=== PATIENT | female | born 1960 | race Caucasian/White ===

== ENCOUNTER 2016-11-22 16:07 | Emergency (ER) | payer MEDICAID ==
[2016-11-22 17:06] LABS: APPEARANCE CLEAR (CLEAR); BILIRUBIN NEGATIVE (NEGATIVE); COLOR YELLOW (YELLOW); GLUCOSE NEGATIVE (NEGATIVE); KETONE NEGATIVE (NEGATIVE); LEUKOCYTE ESTERASE NEGATIVE (NEGATIVE); NITRITE NEGATIVE (NEGATIVE); PROTEIN NEGATIVE (NEGATIVE); SPECIFIC GRAVITY 1.015 (1.005-1.020); UROBILINOGEN NORMAL (NORMAL)
[2016-11-22 17:21] LABS: UDS - AMPHET NEGATIVE QUAL (NEGATIVE); UDS - BARB NEGATIVE QUAL (NEGATIVE); UDS - BENZO POSITIVE QUAL (NEGATIVE); UDS - COCAINE NEGATIVE QUAL (NEGATIVE); UDS - METH NEGATIVE QUAL (NEGATIVE); UDS - OPIATE NEGATIVE QUAL (NEGATIVE); UDS - PCP NEGATIVE QUAL (NEGATIVE); UDS - THC NEGATIVE QUAL (NEGATIVE)
[2016-11-22 17:25] LABS: BASOPHILS 0.5 % (0-2); EOSINOPHILS 0.5 % (0-7); HEMATOCRIT 40.2 % (36.0-48.0); HEMOGLOBIN 13.3 g/dL (12-16); IMMATURE GRANULOCYTES 0.4 % (0-5); LYMPHOCYTES 20.2 % (15-50); MCH 34.3 pg (26.0-34.0); MCHC 33.1 g/dL (31.0-37.0); MCV 103.6 fL (80.0-100.0); MEAN PLATELET VOLUME 9.6 fL (7.4-10.4); MONOCYTES 11.6 % (2-11); NEUTROPHILS 66.8 % (40-80); PLATELET COUNT 287 10x3/uL (130-400); RBC 3.88 10x6/uL (4.00-5.40); RDW 13.1 % (11.5-14.5); WBC 7.6 10x3/uL (4.8-10.8)
[2016-11-22 17:43] LABS: ALBUMIN 3.7 g/dL (3.4-5.0); ALKALINE PHOSPHATASE 85 U/L (46-116); ALT (SGPT) 36 U/L (10-68); AMYLASE - SERUM 36 U/L (25-115); BILIRUBIN - TOTAL 0.33 mg/dL (0.2-1.3); CALC OSMOLALITY 276 mosm/kg (275-300); CALCIUM 8.9 mg/dL (8.5-10.1); CARBON DIOXIDE 28.6 mmol/L (21.0-32.0); CHLORIDE - SERUM 103 mmol/L (98-107); CREATININE - SERUM 0.7 mg/dL (0.6-1.3); GLUCOSE 99 mg/dL (74-106); LIPASE 199 U/L (73-393); POTASSIUM - SERUM 3.9 mmol/L (3.5-5.1); SODIUM 139 mmol/L (136-145); UREA NITROGEN 11 mg/dL (7-18); eGFR NON AFRICAN AMERICAN > 90 mL/min (90-120)
== END 2016-11-22 20:00 | disposition home or self-care (01) ==
LOC: D.ER 16:07
PROVIDERS: Emergency Medicine
DX: K59.00 Constipation, unspecified (principal); R10.9 Unspecified abdominal pain

== ENCOUNTER 2016-12-31 19:15 | Emergency (ER) | payer MEDICAID ==
[2016-12-31 20:37] LABS: APPEARANCE HAZY (CLEAR); BILIRUBIN NEGATIVE (NEGATIVE); COLOR YELLOW (YELLOW); GLUCOSE NEGATIVE (NEGATIVE); KETONE SMALL mg/dL (NEGATIVE); LEUKOCYTE ESTERASE TRACE (NEGATIVE); NITRITE NEGATIVE (NEGATIVE); PROTEIN NEGATIVE (NEGATIVE); SPECIFIC GRAVITY 1.015 (1.005-1.020); UROBILINOGEN NORMAL (NORMAL)
[2016-12-31 20:40] LABS: EPITHELIAL CELLS 0-5 /hpf (0-5)
[2016-12-31 20:41] LABS: BACTERIA FEW /hpf (NONE SEEN)
== END 2016-12-31 22:55 | disposition home or self-care (01) ==
LOC: D.ER 19:15
PROVIDERS: Family Medicine
DX: F41.9 Anxiety disorder, unspecified (principal); N39.0 Urinary tract infection, site not specified; K57.92 Diverticulitis of intestine, part unspecified, without perforation or abscess without bleeding; R10.9 Unspecified abdominal pain; R11.0 Nausea; R45.1 Restlessness and agitation

== ENCOUNTER 2017-01-11 14:38 | Emergency (ER) | payer MEDICAID | END 2017-01-11 17:30 | disposition home or self-care (01) | LOC: D.ER 14:38 | DX: S20.219A Contusion of unspecified front wall of thorax, initial encounter (principal); W19.XXXA Unspecified fall, initial encounter; Y93.89 Activity, other specified; Y92.89 Other specified places as the place of occurrence of the external cause; S01.511A Laceration without foreign body of lip, initial encounter ==

== ENCOUNTER 2017-01-15 16:45 | Emergency (ER) | payer MEDICAID | END 2017-01-15 18:15 | disposition home or self-care (01) | LOC: D.ER 16:45 | DX: S20.211A Contusion of right front wall of thorax, initial encounter (principal); X58.XXXA Exposure to other specified factors, initial encounter; Y93.89 Activity, other specified; Y92.89 Other specified places as the place of occurrence of the external cause; R07.81 Pleurodynia ==

== ENCOUNTER 2017-01-31 16:33 | Emergency (ER) | payer MEDICAID ==
[2017-01-31 17:23] LABS: BASOPHILS 0.2 % (0-2); EOSINOPHILS 0.2 % (0-7); HEMATOCRIT 42.4 % (36.0-48.0); HEMOGLOBIN 14.7 g/dL (12-16); IMMATURE GRANULOCYTES 0.2 % (0-5); LYMPHOCYTES 15.3 % (15-50); MCH 34.6 pg (26.0-34.0); MCHC 34.7 g/dL (31.0-37.0); MCV 99.8 fL (80.0-100.0); MEAN PLATELET VOLUME 9.6 fL (7.4-10.4); MONOCYTES 9.3 % (2-11); NEUTROPHILS 74.8 % (40-80); RBC 4.25 10x6/uL (4.00-5.40); RDW 12.8 % (11.5-14.5); WBC 9.6 10x3/uL (4.8-10.8)
[2017-01-31 17:36] LABS: PLATELET COUNT 398 10x3/uL (130-400)
[2017-01-31 17:37] LABS: APPEARANCE HAZY (CLEAR); BILIRUBIN NEGATIVE (NEGATIVE); COLOR YELLOW (YELLOW); GLUCOSE NEGATIVE (NEGATIVE); KETONE NEGATIVE (NEGATIVE); LEUKOCYTE ESTERASE TRACE (NEGATIVE); NITRITE NEGATIVE (NEGATIVE); PROTEIN NEGATIVE (NEGATIVE); SPECIFIC GRAVITY 1.015 (1.005-1.020); UROBILINOGEN NORMAL (NORMAL)
[2017-01-31 17:41] LABS: BACTERIA FEW /hpf (NONE SEEN); WHITE CELLS - URINE 0-5 /hpf (0-5)
[2017-01-31 17:44] LABS: ALBUMIN 4.4 g/dL (3.4-5.0); ALKALINE PHOSPHATASE 91 U/L (46-116); ALT (SGPT) 23 U/L (10-68); BILIRUBIN - TOTAL 0.64 mg/dL (0.2-1.3); CALC OSMOLALITY 279 mosm/kg (275-300); CALCIUM 9.9 mg/dL (8.5-10.1); CARBON DIOXIDE 28.5 mmol/L (21.0-32.0); CHLORIDE - SERUM 100 mmol/L (98-107); CREATININE - SERUM 0.8 mg/dL (0.6-1.3); POTASSIUM - SERUM 4.2 mmol/L (3.5-5.1); PROTEIN - SERUM 8.4 g/dL (6.4-8.2); SODIUM 139 mmol/L (136-145); UREA NITROGEN 8 mg/dL (7-18); eGFR NON AFRICAN AMERICAN 79 mL/min (90-120)
[2017-01-31 17:49] LABS: GLUCOSE 163 mg/dL (74-106)
== END 2017-01-31 19:08 | disposition home or self-care (01) ==
LOC: D.ER 16:33
PROVIDERS: Emergency Medicine
DX: S01.511D Laceration without foreign body of lip, subsequent encounter (principal); X58.XXXD Exposure to other specified factors, subsequent encounter; Y92.89 Other specified places as the place of occurrence of the external cause

== ENCOUNTER 2017-02-21 13:41 | Emergency (ER) | payer MEDICAID ==
[2017-02-21 14:08] LABS: BASOPHILS 0.4 % (0-2); EOSINOPHILS 0.2 % (0-7); HEMATOCRIT 42.1 % (36.0-48.0); HEMOGLOBIN 14.1 g/dL (12-16); IMMATURE GRANULOCYTES 0.4 % (0-5); MCHC 33.5 g/dL (31.0-37.0); MCV 101.4 fL (80.0-100.0); MEAN PLATELET VOLUME 9.2 fL (7.4-10.4); MONOCYTES 5.9 % (2-11); NEUTROPHILS 80.1 % (40-80); RBC 4.15 10x6/uL (4.00-5.40); RDW 13.2 % (11.5-14.5)
[2017-02-21 14:09] LABS: PLATELET COUNT 316 10x3/uL (130-400)
[2017-02-21 14:23] LABS: ALBUMIN 4.3 g/dL (3.4-5.0); ALKALINE PHOSPHATASE 87 U/L (46-116); ALT (SGPT) 29 U/L (10-68); BILIRUBIN - TOTAL 0.54 mg/dL (0.2-1.3); CALC OSMOLALITY 266 mosm/kg (275-300); CALCIUM 9.2 mg/dL (8.5-10.1); CARBON DIOXIDE 21.2 mmol/L (21.0-32.0); CHLORIDE - SERUM 96 mmol/L (98-107); CREATININE - SERUM 0.7 mg/dL (0.6-1.3); POTASSIUM - SERUM 3.7 mmol/L (3.5-5.1); PROTEIN - SERUM 7.9 g/dL (6.4-8.2); SODIUM 135 mmol/L (136-145); UREA NITROGEN 10 mg/dL (7-18); eGFR NON AFRICAN AMERICAN > 90 mL/min (90-120)
[2017-02-21 14:27] LABS: GLUCOSE 69 mg/dL (74-106)
[2017-02-21 14:36] LABS: CHOL - HDL RATIO 1.9 ratio (2.3-4.1); CHOLESTEROL, TOTAL 247 mg/dL (0-200); CREATINE KINASE 91 UL (21-215); HDL CHOLESTEROL 130 mg/dL (32-96); LDL CHOLESTEROL 106 mg/dL (0-100); LDL-HDL RATIO 0.8 ratio (1.5-3.5); TRIGLYCERIDE 56 mg/dL (30-200); TROPONIN-I < 0.017 ng/mL (0.000-0.060)
== END 2017-02-21 16:30 | disposition home or self-care (01) ==
LOC: D.ER 13:41
PROVIDERS: Emergency Medicine
DX: F41.9 Anxiety disorder, unspecified (principal); F41.0 Panic disorder [episodic paroxysmal anxiety]; F17.200 Nicotine dependence, unspecified, uncomplicated; R00.0 Tachycardia, unspecified; R00.2 Palpitations; R11.0 Nausea

== ENCOUNTER 2017-04-27 15:02 | Emergency (ER) | payer MEDICAID ==
[2017-04-27 16:04] LABS: APPEARANCE CLEAR (CLEAR); BILIRUBIN NEGATIVE (NEGATIVE); COLOR YELLOW (YELLOW); GLUCOSE NEGATIVE (NEGATIVE); KETONE SMALL mg/dL (NEGATIVE); NITRITE NEGATIVE (NEGATIVE); PROTEIN NEGATIVE (NEGATIVE); UROBILINOGEN NORMAL (NORMAL)
[2017-04-27 17:40] LABS: ALBUMIN 3.7 g/dL (3.4-5.0); ALKALINE PHOSPHATASE 84 U/L (46-116); ALT (SGPT) 21 U/L (10-68); CALC OSMOLALITY 274 mosm/kg (275-300); CALCIUM 9.3 mg/dL (8.5-10.1); CARBON DIOXIDE 25.9 mmol/L (21.0-32.0); CHLORIDE - SERUM 101 mmol/L (98-107); CREATININE - SERUM 0.7 mg/dL (0.6-1.3); GLUCOSE 84 mg/dL (74-106); POTASSIUM - SERUM 3.5 mmol/L (3.5-5.1); PROTEIN - SERUM 6.8 g/dL (6.4-8.2); SODIUM 139 mmol/L (136-145); UREA NITROGEN 7 mg/dL (7-18); eGFR NON AFRICAN AMERICAN > 90 mL/min (90-120)
[2017-04-27 18:34] LABS: BASOPHILS 0.9 % (0-2); EOSINOPHILS 0.3 % (0-7); HEMATOCRIT 41.1 % (36.0-48.0); HEMOGLOBIN 13.6 g/dL (12-16); IMMATURE GRANULOCYTES 0.3 % (0-5); LYMPHOCYTES 22.3 % (15-50); MCH 33.5 pg (26.0-34.0); MCHC 33.1 g/dL (31.0-37.0); MCV 101.2 fL (80.0-100.0); MEAN PLATELET VOLUME 10.3 fL (7.4-10.4); MONOCYTES 9.4 % (2-11); NEUTROPHILS 66.8 % (40-80); PLATELET COUNT 301 10x3/uL (130-400); RBC 4.06 10x6/uL (4.00-5.40); RDW 12.2 % (11.5-14.5); WBC 6.5 10x3/uL (4.8-10.8)
== END 2017-04-27 19:17 | disposition home or self-care (01) ==
LOC: D.ER 15:02
PROVIDERS: Emergency Medicine; Physician Assistant
DX: R30.0 Dysuria (principal); R11.0 Nausea; R10.9 Unspecified abdominal pain; S99.921A Unspecified injury of right foot, initial encounter; X58.XXXA Exposure to other specified factors, initial encounter; Y93.89 Activity, other specified; Y92.029 Unspecified place in mobile home as the place of occurrence of the external cause

== ENCOUNTER 2017-09-17 02:58 | Emergency (ER) | payer MEDICAID ==
[2017-09-17 04:19] LABS: EOSINOPHILS 0.7 % (0-7); HEMATOCRIT 38.2 % (36.0-48.0); HEMOGLOBIN 12.9 g/dL (12-16); IMMATURE GRANULOCYTES 0.3 % (0-5); LYMPHOCYTES 15.1 % (15-50); MCH 33.7 pg (26.0-34.0); MCHC 33.8 g/dL (31.0-37.0); MCV 99.7 fL (80.0-100.0); MEAN PLATELET VOLUME 8.8 fL (7.4-10.4); MONOCYTES 11.1 % (2-11); NEUTROPHILS 71.8 % (40-80); PLATELET COUNT 317 10x3/uL (130-400); RBC 3.83 10x6/uL (4.00-5.40); RDW 13.6 % (11.5-14.5); WBC 7.2 10x3/uL (4.8-10.8)
[2017-09-17 04:32] LABS: CALC OSMOLALITY 268 mosm/kg (275-300); CALCIUM 8.8 mg/dL (8.5-10.1); CARBON DIOXIDE 29.3 mmol/L (21.0-32.0); CHLORIDE - SERUM 95 mmol/L (98-107); CREATINE KINASE 110 UL (21-215); CREATININE - SERUM 0.6 mg/dL (0.6-1.3); GLUCOSE 94 mg/dL (74-106); POTASSIUM - SERUM 3.5 mmol/L (3.5-5.1); SODIUM 136 mmol/L (136-145); UREA NITROGEN 5 mg/dL (7-18); eGFR NON AFRICAN AMERICAN > 90 mL/min (90-120)
== END 2017-09-17 05:39 | disposition home or self-care (01) ==
LOC: D.ER 02:58
PROVIDERS: Emergency Medicine
DX: F41.9 Anxiety disorder, unspecified (principal); Z72.820 Sleep deprivation; R51 Headache; F17.200 Nicotine dependence, unspecified, uncomplicated

== ENCOUNTER 2018-08-02 03:21 | Inpatient (IN) | payer MEDICAID ==
[~2018-08-02] VITALS: Ht 167.6 cm; Wt 59.1 kg
[2018-08-02] VITALS (10 sets, daily range): BP systolic 74–99; BP diastolic 40–62
--- NOTE | 2018-08-02 03:46 | NUR ---
SOFT WRIST RESTRAINTS APPLIED BILATERALLY D/T PT PULLING AT LINES AND CONFUSED.
[2018-08-02 03:50] LABS: BASOPHILS 0.3 % (0-2); EOSINOPHILS 0.5 % (0-7); HEMATOCRIT 43.4 % (36.0-48.0); HEMOGLOBIN 14.6 g/dL (12-16); IMMATURE GRANULOCYTES 1.7 % (0-5); LYMPHOCYTES 26.7 % (15-50); MCH 33.1 pg (26.0-34.0); MCHC 33.6 g/dL (31.0-37.0); MCV 98.4 fL (80.0-100.0); MEAN PLATELET VOLUME 9.9 fL (7.4-10.4); MONOCYTES 3.5 % (2-11); NEUTROPHILS 67.3 % (40-80); RBC 4.41 10x6/uL (4.00-5.40); RDW 12.7 % (11.5-14.5); WBC 17.2 10x3/uL (4.8-10.8)
[2018-08-02 03:52] LABS: PLATELET COUNT 442 10x3/uL (130-400)
[2018-08-02 04:01] LABS: APPEARANCE CLEAR (CLEAR); BILIRUBIN NEGATIVE (NEGATIVE); COLOR YELLOW (YELLOW); GLUCOSE 50 mg/dL (NEGATIVE); KETONE NEGATIVE (NEGATIVE); NITRITE NEGATIVE (NEGATIVE); PROTEIN NEGATIVE (NEGATIVE); SPECIFIC GRAVITY 1.015 (1.005-1.020); UROBILINOGEN NORMAL (NORMAL)
[2018-08-02 04:03] LABS: ALBUMIN 4.2 g/dL (3.4-5.0); ALKALINE PHOSPHATASE 114 U/L (46-116); ALT (SGPT) 35 U/L (10-68); BILIRUBIN - TOTAL 0.31 mg/dL (0.2-1.3); CALC OSMOLALITY 285 mosm/kg (275-300); CALCIUM 8.4 mg/dL (8.5-10.1); CARBON DIOXIDE 22.4 mmol/L (21.0-32.0); CHLORIDE - SERUM 102 mmol/L (98-107); CREATININE - SERUM 0.7 mg/dL (0.6-1.3); POTASSIUM - SERUM 3.7 mmol/L (3.5-5.1); PROTEIN - SERUM 7.9 g/dL (6.4-8.2); SODIUM 141 mmol/L (136-145); UREA NITROGEN 12 mg/dL (7-18); eGFR NON AFRICAN AMERICAN > 90 mL/min (90-120)
[2018-08-02 04:05] LABS: CREATINE KINASE 201 UL (21-215)
--- NOTE | 2018-08-02 04:07 | NUR ---
SKINNY BOONE ON PT WITH WARM BLANKETS. NS INFUSING THROUGH WARMER AT THIS TIME. PT WAKES TO VERBAL STIMULATION.
[2018-08-02 04:08] LABS: UDS - AMPHET NEGATIVE QUAL (NEGATIVE); UDS - BARB NEGATIVE QUAL (NEGATIVE); UDS - BENZO NEGATIVE QUAL (NEGATIVE); UDS - COCAINE NEGATIVE QUAL (NEGATIVE); UDS - OPIATE NEGATIVE QUAL (NEGATIVE); UDS - PCP NEGATIVE QUAL (NEGATIVE); UDS - THC NEGATIVE QUAL (NEGATIVE)
[2018-08-02 04:11] LABS: GLUCOSE 194 mg/dL (74-106)
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
--- NOTE | 2018-08-02 05:41 | NUR ---
800 cc's of urine emptied from mcdonald.
--- NOTE | 2018-08-02 06:04 | NUR ---
PT RESTING QUIETLY WITH EYES CLOSED. SKINNY WARMER STILL IN PLACE AROUND HEAD AND BODY. TEMP UP TO 93 VIA CRITICORE.
--- NOTE | 2018-08-02 06:50 | NUR ---
REPEAT ABG'S DONE. WRIST RESTRAINTS REMOVED. PT VERY SLEEPY.
[2018-08-02] MEDS ORDERED: AMBIEN CR 6.26.25 MG PO (08:11)
[2018-08-02] MEDS ORDERED: KLONOPIN1 MG PO (08:13)
[2018-08-02 11:09] LABS: HEMATOCRIT 43.6 % (36.0-48.0); HEMOGLOBIN 14.4 g/dL (12-16); MCH 33.3 pg (26.0-34.0); MEAN PLATELET VOLUME 10.6 fL (7.4-10.4); PLATELET COUNT 482 10x3/uL (130-400); RBC 4.33 10x6/uL (4.00-5.40); RDW 12.9 % (11.5-14.5); WBC 17.2 10x3/uL (4.8-10.8)
[2018-08-02 11:16] LABS: MCV 100.7 fL (80.0-100.0)
[2018-08-02 12:38] LABS: LYMPHOCYTES 30 % (15-50); MONOCYTES 3 % (2-11); NEUTROPHILS 65 % (40-80); PLATELET ESTIMATE NORMAL; PLATELET MORPHOLOGY NORMAL PLT MORPH
--- NOTE | 2018-08-02 17:10 | NUR ---
CATHETER REMOVED. PATIENT TOLERATED WELL. CRITICORE MACHINE PUT IN DIRTY UTILITY AFTER SPEAKING TO WYATT IN ER. TRIED TO CALL CICU TO TELL THEM. YASMIN, MILLING MACHINE SET UP OPERATOR TRYING TOO.
[2018-08-03 00:30] VITALS: BP 92/53; Ht 167.6 cm; Wt 59.1 kg
[2018-08-03 04:00] VITALS: BP 105/66
[2018-08-03 06:27] LABS: CHLORIDE - SERUM 110 mmol/L (98-107); CREATININE - SERUM 0.7 mg/dL (0.6-1.3); POTASSIUM - SERUM 3.4 mmol/L (3.5-5.1); SODIUM 146 mmol/L (136-145); eGFR NON AFRICAN AMERICAN > 90 mL/min (90-120)
[2018-08-03 06:28] LABS: CALC OSMOLALITY 288 mosm/kg (275-300); GLUCOSE 92 mg/dL (74-106); UREA NITROGEN 7 mg/dL (7-18)
--- NOTE | 2018-08-03 06:48 | NUR ---
K+ RESULTS=3.4. POTASSIUM 40MEQ PO GIVEN PER E.PROTOCAL.
[2018-08-03 07:04] LABS: BASOPHILS 0.4 % (0-2); EOSINOPHILS 0.8 % (0-7); IMMATURE GRANULOCYTES 0.2 % (0-5); LYMPHOCYTES 29.2 % (15-50); MCH 31.7 pg (26.0-34.0); MCHC 32.5 g/dL (31.0-37.0); MEAN PLATELET VOLUME 9.7 fL (7.4-10.4); MONOCYTES 8.9 % (2-11); NEUTROPHILS 60.5 % (40-80); RDW 13.1 % (11.5-14.5)
[2018-08-03 07:09] LABS: HEMATOCRIT 30.5 % (36.0-48.0); HEMOGLOBIN 9.9 g/dL (12-16); MCV 97.8 fL (80.0-100.0); PLATELET COUNT 262 10x3/uL (130-400); RBC 3.12 10x6/uL (4.00-5.40); WBC 5.3 10x3/uL (4.8-10.8)
--- NOTE | 2018-08-03 07:30 | NUR ---
A/A/OX4. DENIES ANY PAIN OR DISCOMFORT. VOICES NO REQUESTS. ASSESSMENT COMPLETED AND WILL CONTINUE POC. BED IN LOW POSITION AND LOCKED. SIDERAILS UP X 2 AND CALL LIGHT IN REACH.
[2018-08-03 09:24] VITALS: BP 108/66
--- NOTE | 2018-08-03 10:19 | MORECARE ---
CASE MANAGEMENT DISCHARGE SUMMARY PATIENT: MARY ELY UNIT: [id number] ADM DATE: 08/02/18 AGE: 57 : [birth year] SEX: F ROOM/BED: D.2223 AUTHOR: JAKOB PHILLIPS PHYSICIAN: REFERRING PHYSICIAN: EMERALD HERNANDEZ MD DATE OF SERVICE: 08/03/18 Discharge Plan Patient Name: MARY ELY Facility: [facility]:[place] : 04/20/1961 Planned Disposition: Home Anticipated Discharge Date: Discharge Date: Expected LOS: Initial Reviewer: [email or web address] Initial Review Date: 08/03/2018 Generated: 08/03/18 11:19 am Patient Name: MARY ELY Page [id number] at 1019 All edits/amendments must be made on the electronic document DICTATION DATE: 08/03/18 1019 TIPPLE OPERATOR: SALONI 08/03/18 1019 RPT#: [id number] DC DATE: STATUS: ADM IN [facility] [address] [place] [address] END OF REPORT
--- NOTE | 2018-08-03 10:28 | MORECARE ---
CASE MANAGEMENT DISCHARGE SUMMARY PATIENT: MARY ELY UNIT: [id number] ADM DATE: 08/02/18 AGE: 57 : [birth year] SEX: F ROOM/BED: D.2223 AUTHOR: ALAN,DOC PHYSICIAN: REFERRING PHYSICIAN: EMERALD HERNANDEZ MD DATE OF SERVICE: 08/03/18 Discharge Plan Patient Name: MARY ELY Facility: [facility]:[place] : 04/20/1961 Planned Disposition: Home Anticipated Discharge Date: Discharge Date: Expected LOS: Initial Reviewer: [email or web address] Initial Review Date: 08/03/2018 Generated: 08/03/18 11:27 am Comments DCP- Discharge Planning Updated by [email or web address]: Lovely Jiang on 08/03/18 9:[address] Patient Name: MARY ELY Admission Status: ER Accout number: [id number] Admission Date: 08-02-2018 : 04-20-1961 Admission Diagnosis: Attending: EMERALD HERNANDEZ Current LOS: 1 Anticipated DC Date: Planned Disposition: Home Primary Insurance: [place] PR[employer]IONS [place] Discharge Planning Comments: CM met with patient to complete initial dc planning assessment. CM educated patient on the CM role and verbal consent given by patient to complete assessment. Patient lives alone. At discharge patient plans to return and feels this is a safe discharge. CM discussed availability of home health, rehab services, and medical equipment. Patient denied known discharge needs at this time. I brought in a list of local drug and alcohol rehab centers and outpatient centers and she refuses to take it, states "I don't need rehab." States she has someone that will transport her home on discharge. CM will continue to follow and will assist as needed with dc plans/needs. Wind Turbine Mechanical Engineer: Lovely Jiang DCPIA - Discharge Planning Initial Assessment Updated by [email or web address]: Lovely Jiang on 08/03/18 10:23 am * Is the patient Alert and Oriented? Yes * How many steps to enter\\exit or inside your home? 3/0 * PCP Dr. Muhammad * Pharmacy [facility] on [address] * Preadmission Environment Home Alone * ADLs Independent * Equipment None * List name and contact numbers for known caregivers / representatives who currently or will assist patient after discharge: Ebenezer Thayer - saroj - [phone] * Verbal permission to speak to the caregivers and representatives has been obtained from the patient. Yes * Community resources currently utilized None * Additional services required to return to the preadmission environment? No * Can the patient safely return to the preadmission environment? Yes * Has this patient been hospitalized within the prior 30 days at any hospital? No Last DP export: 08/03/18 9:19 am Patient Name: MARY ELY Page [id number] at 1028 All edits/amendments must be made on the electronic document DICTATION DATE: 08/03/18 1027 PRESS OPERATOR PRINTING: SALONI 08/03/18 1027 RPT#: [id number] DC DATE: STATUS: ADM IN [facility] [address] [place] [address] END OF REPORT
[2018-08-03] MEDS ORDERED: VITAMIN B-1100 M1 PO (11:56)
[2018-08-03] MEDS ORDERED: FOLIC ACID1 MG PO (11:56)
[2018-08-03] MEDS ORDERED: Nicoderm [PBKC] TRANSDERM (11:56)
[2018-08-03 12:00] VITALS: BP 107/57
--- NOTE | 2018-08-03 12:12 | MORECARE ---
CASE MANAGEMENT DISCHARGE SUMMARY PATIENT: MARY ELY UNIT: [id number] ADM DATE: 08/02/18 AGE: 57 : [birth year] SEX: F ROOM/BED: D.2223 AUTHOR: ALAN,DOC PHYSICIAN: REFERRING PHYSICIAN: EMERALD HERNANDEZ MD DATE OF SERVICE: 08/03/18 Discharge Plan Patient Name: MARY ELY Facility: [facility]:[place] : 04/20/1961 Planned Disposition: Home Anticipated Discharge Date: Discharge Date: Expected LOS: Initial Reviewer: [email or web address] Initial Review Date: 08/03/2018 Generated: 08/03/18 1:12 pm Comments DCP- Discharge Planning Updated by [email or web address]: Lovely Jiang on 08/03/18 11:[address] Received discharge orders, Declines needs. No needs identified. Home today. DCP- Discharge Planning Updated by [email or web address]: Lovely Jiang on 08/03/18 9:[address] Patient Name: MARY ELY Admission Status: ER Accout number: [id number] Admission Date: 08-02-2018 : 04-20-1961 Admission Diagnosis: Attending: EMERALD HERNANDEZ Current LOS: 1 Anticipated DC Date: Planned Disposition: Home Primary Insurance: [place] PRIVATE OPTIONS [facility] Discharge Planning Comments: CM met with patient to complete initial dc planning assessment. CM educated patient on the CM role and verbal consent given by patient to complete assessment. Patient lives alone. At discharge patient plans to return and feels this is a safe discharge. CM discussed availability of home health, rehab services, and medical equipment. Patient denied known discharge needs at this time. I brought in a list of local drug and alcohol rehab centers and outpatient centers and she refuses to take it, states "I don't need rehab." States she has someone that will transport her home on discharge. CM will continue to follow and will assist as needed with dc plans/needs. Social Worker Delinquency Prevention: Lovely Jiang DCPIA - Discharge Planning Initial Assessment Updated by [email or web address]: Lovely Jiang on 08/03/18 10:23 am * Is the patient Alert and Oriented? Yes * How many steps to enter\\exit or inside your home? 3/0 * PCP Dr. Muhammad * Pharmacy [facility] on [address] * Preadmission Environment Home Alone * ADLs Independent * Equipment None * List name and contact numbers for known caregivers / representatives who currently or will assist patient after discharge: Ebenezer kyle - [phone] * Verbal permission to speak to the caregivers and representatives has been obtained from the patient. Yes * Community resources currently utilized None * Additional services required to return to the preadmission environment? No * Can the patient safely return to the preadmission environment? Yes * Has this patient been hospitalized within the prior 30 days at any hospital? No Last DP export: 08/03/18 9:27 am Patient Name: MARY ELY Page 31315 at 1212 All edits/amendments must be made on the electronic document DICTATION DATE: 08/03/18 121 ASSISTANT NEWS DIRECTOR: SALONI 08/03/18 1212 RPT#: [id number] DC DATE: STATUS: ADM IN [facility] [address] [place] [address] END OF REPORT
[2018-08-03 14:29] LABS: BASOPHILS 0.7 % (0-2); EOSINOPHILS 0.7 % (0-7); HEMATOCRIT 34.6 % (36.0-48.0); HEMOGLOBIN 11.4 g/dL (12-16); IMMATURE GRANULOCYTES 0.3 % (0-5); LYMPHOCYTES 20.7 % (15-50); MCH 32.3 pg (26.0-34.0); MCHC 32.9 g/dL (31.0-37.0); MONOCYTES 5.7 % (2-11); NEUTROPHILS 71.9 % (40-80); PLATELET COUNT 285 10x3/uL (130-400); RBC 3.53 10x6/uL (4.00-5.40); RDW 13.3 % (11.5-14.5)
[2018-08-03 14:57] LABS: WBC 7.5 10x3/uL (4.8-10.8)
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
--- NOTE | 2018-08-03 17:19 | NUR ---
HEARING AID ASSISTANT NOTE- READY FOR DISCHARGE. IV HAS BEEN DC'ED. TEMP BACK UP WITHIN NORMAL LIMITS. UP AD BELTRAN AND NO FURTHER NEEDS
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
[2018-08-03 17:43] VITALS: BP 103/60
== END 2018-08-03 18:10 | disposition home or self-care (01) | DRG 923 ==
LOC: D.ER 03:21 → D.EDHOLD 05:21 → OBSVTIME 05:21 → D.MS 05:30
PROVIDERS: Emergency Medicine; Family Medicine; ADMIT Internal Medicine Nephrology; ATTEND Internal Medicine Nephrology
DX: T68.XXXA Hypothermia, initial encounter (principal); F17.213 Nicotine dependence, cigarettes, with withdrawal; E87.2 Acidosis; F10.129 Alcohol abuse with intoxication, unspecified; Y90.8 Blood alcohol level of 240 mg/100 ml or more; E86.0 Dehydration; F41.9 Anxiety disorder, unspecified; R00.0 Tachycardia, unspecified; Z78.0 Asymptomatic menopausal state; D53.9 Nutritional anemia, unspecified